=== PATIENT | female | born 1995 | race Caucasian/White ===

== ENCOUNTER → 2017-06-21 | Outpatient (CLI) | payer BC | LOC: BMCIMAGING 11:14 | PROVIDERS: ATTEND Internal Medicine | DX: J98.4 Other disorders of lung (principal); R20.9 Unspecified disturbances of skin sensation; R63.4 Abnormal weight loss; R11.0 Nausea; R00.0 Tachycardia, unspecified ==

== ENCOUNTER → 2017-10-23 | Outpatient (CLI) | payer BC | LOC: BMCIMAGING 09:18 | PROVIDERS: ATTEND Family Medicine | DX: J98.8 Other specified respiratory disorders (principal) ==